=== PATIENT | female | born 2000 | race American Indian/Alaskan Native ===

== ENCOUNTER 2019-06-17 19:35 | Emergency (ER) | payer MEDICAID ==
--- NOTE | 2019-06-17 20:14 | Event Note ---
ED Screening Note Date of service: 06/17/19 Time: 20:10 ED Screening Note: This is a 18 y.o. F. that presents to the ER with vaginal bleeding that started today. She is 15 weeks gestation. LMP 02/26/19, . Followed by [facility] at [facility]. Denies pain This initial assessment/diagnostic orders/clinical plan/treatment(s) is/are subject to change based on patients health status, clinical progression and re- assessment by fellow clinical providers in the ED. Further treatment and workup at subsequent clinical providers discretion. Patient/guardian urged not to elope from the ED as their condition may be serious if not clinically assessed and managed. Initial orders include: Labs and US
[2019-06-17 20:33] LABS: Basophils % (Auto) 0.3 % (0.0-1.8); Eosinophils # (Auto) 0.1 K/mm3 (0.0-0.4); Eosinophils % (Auto) 0.9 % (0.0-4.3); Hematocrit 34.9 % (30.3-42.9); Hemoglobin 12.5 gm/dl (10.1-14.3); Lymphocytes # (Auto) 1.9 K/mm3 (1.2-5.4); Lymphocytes % (Auto) 24.3 % (13.4-35.0); Mean Corpuscular HGB Conc 36 % (30-34); Mean Corpuscular Volume 92 fl (79-97); Monocytes # (Auto) 0.5 K/mm3 (0.0-0.8); Monocytes % (Auto) 6.9 % (0.0-7.3); Platelet Count 228 K/mm3 (140-440); Red Cell Distribution Width 12.5 % (13.2-15.2)
[2019-06-17 21:56] LABS: Bilirubin,Urine NEG (Negative); Blood,Urine MOD (Negative); Calcium Oxalate Crystals,Urine 2+; Color,Urine Yellow (Yellow); Mucus,Urine FEW /HPF; Protein,Urine <15 mg/dL mg/dL (Negative); Urobilinogen,Urine < 2.0 mg/dL (<2.0)
--- NOTE | 2019-06-17 21:58 | Ultrasound Report ---
ULTRASOUND OBSTETRIC INDICATION / CLINICAL INFORMATION: vaginal bleeding, 15 weeks gest. Clinical Gestational Age (GA): 15 weeks TECHNIQUE: Transabdominal. COMPARISON: None available. FINDINGS: There is a single intrauterine . Biparietal Diameter = 3.48 cm = 16 weeks, 5 day(s). Head Circumference = 12.5 cm = 16 weeks, 2 day(s). Abdominal Circumference = 9.74 cm = 15 weeks, 6 day(s). Femur Length = 1.94 cm = 15 weeks, 5 day(s). Average Ultrasound Age (AUA) = 16 weeks, 1 day(s). Heart Rate: 152 beats per minute. Estimated Weight in grams (if calculated): Estimated Weight Growth Percentile (if calculated): Position: transverse. Cervix: closed. Length in cm (if measured): Placenta: anterior and free of the os. Amniotic Fluid Volume: normal Amniotic Fluid Index (SHARMILA) in cm (if calculated): . Maternal Adnexa: No significant abnormality. IMPRESSION: 1. Single, living intrauterine with estimated sonographic age of 16 weeks, 1 day(s). 2. No significant sonographic abnormality. Signer Name: Ariel Palafox MD Signed: 06/17/2019 9:54 PM Workstation Name: [id number]
--- NOTE | 2019-06-17 22:07 | Emergency Department Report ---
ED Female HPI - General Chief complaint: Vaginal Bleeding Stated complaint: VAGINAL BLEEDING/15WKS Time Seen by Provider: 06/17/19 20:10 Source: patient Mode of arrival: Ambulatory Limitations: No Limitations - History of Present Illness Initial comments: The patient is a A0 18-year-old white female who is approximately 15 weeks' gestation who presents to the ED with acute onset persistent intermittent vaginal bleeding which she describes as spotting for the last 6 hours. Patient states that the bleeding is bright red when she wipes whenever she voids urine. Patient denies abdominal pain, dysuria, urinary frequency and urgency, vaginal discharge, low back pain, dizziness, nausea, vomiting, diarrhea, traumatic injury or heavy lifting, fever and chills. MD Complaint: vaginal bleeding -: Sudden, hour(s) (6) Location: suprapubic Radiation: non-radiating Severity: moderate Severity scale (0 -10): 3 Quality: dull Consistency: intermittent Improves with: none Worsens with: urination Are you Now?: Yes (15 weeks gestation) Associated Symptoms: denies other symptoms, vaginal bleeding. denies: vaginal discharge, abdominal pain, nausea/vomiting, fever/chills, headaches, loss of appetite, dysuria, hematuria, rash, seizure, shortness of breath, syncope, weakness, other - Related Data Sexually active: Yes : 1 Para: 0 A: 0 Previous Rx's Medication Instructions Recorded Last Taken Type cephALEXin [Keflex] 500 mg PO Q6HR #40 capsule 06/17/19 Unknown Rx Allergies Allergy/AdvReac Type Severity Reaction Status Date / Time No Known Allergies Allergy Unverified 05/22/16 04:10 ED Review of Systems ROS: Stated complaint: VAGINAL BLEEDING/15WKS Other details as noted in HPI Constitutional: denies: chills, fever Eyes: denies: eye pain, eye discharge, vision change ENT: denies: ear pain, throat pain Respiratory: denies: cough, shortness of breath, wheezing Cardiovascular: denies: chest pain, palpitations Endocrine: no symptoms reported Gastrointestinal: denies: abdominal pain, nausea, diarrhea Genitourinary: hematuria, other (Vaginal bleeding). denies: urgency, dysuria, frequency, discharge Musculoskeletal: denies: back pain, joint swelling, arthralgia Skin: denies: rash, lesions Neurological: denies: headache, weakness, paresthesias Psychiatric: denies: anxiety, depression Hematological/Lymphatic: denies: easy bleeding, easy bruising ED Past Medical Hx - Past Medical History Previous Medical History?: Yes Hx Psychiatric Treatment: Yes (depression, bipolor) - Surgical History Past Surgical History?: No - Social History Smoking Status: Former Smoker Substance Use Type: None - Medications Home Medications: Home Medications Medication Instructions Recorded Confirmed Last Taken Type cephALEXin [Keflex] 500 mg PO Q6HR #40 capsule 06/17/19 Unknown Rx ED Physical Exam - General Limitations: No Limitations General appearance: alert, in no apparent distress - Head Head exam: Present: atraumatic, normocephalic, normal inspection - Eye Eye exam: Present: normal appearance, PERRL, EOMI. Absent: scleral icterus, conjunctival injection, nystagmus, periorbital swelling, periorbital tenderness Pupils: Present: normal accommodation - ENT ENT exam: Present: normal exam, normal orophraynx, mucous membranes moist, TM's normal bilaterally, normal external ear exam - Neck Neck exam: Present: normal inspection, full ROM - Respiratory Respiratory exam: Present: normal lung sounds bilaterally. Absent: respiratory distress, wheezes, rales, chest wall tenderness, accessory muscle use, decreased breath sounds - Cardiovascular Cardiovascular Exam: Present: regular rate, normal rhythm, normal heart sounds. Absent: systolic murmur, diastolic murmur, rubs, gallop - GI/Abdominal GI/Abdominal exam: Present: soft, normal bowel sounds. Absent: tenderness, guarding, rebound, hyperactive bowel sounds, hypoactive bowel sounds - Rectal Rectal exam: Present: deferred - Bi-manual exam: Present: other (deferred, patient choice) - Extremities Exam Extremities exam: Present: normal inspection, full ROM, normal capillary refill - Back Exam Back exam: Present: normal inspection, full ROM. Absent: tenderness, CVA tenderness (R), CVA tenderness (L), muscle spasm, paraspinal tenderness, vertebral tenderness - Neurological Exam Neurological exam: Present: alert, oriented X3, CN II-XII intact, normal gait, reflexes normal - Psychiatric Psychiatric exam: Present: normal affect, normal mood - Skin Skin exam: Present: warm, dry, intact, normal color. Absent: rash ED Course Vital Signs 06/17/19 19:57 Temperature 98.6 F Pulse Rate 77 Respiratory 18 Rate Blood Pressure 113/71 O2 Sat by Pulse 96 Oximetry - Reevaluation(s) Reevaluation #1: 06/17/19 22:06 This is a 18-year-old female who is approximately 15 weeks gestation presented to the ED with vaginal bleeding. In the ED, patient is alert and oriented 3 and is not in distress or pain. The vital signs are stable. Lab test results were reviewed and are all unremarkable except UA that showed acute Urinary tract infection. The transvaginal ultrasound shows a single IUP of approximately 16 weeks 1 day, with a heart rate of 152 bpm, and no other abnormalities. Patient was discharged home and advised to maintain a complete pelvic rest, and to follow-up with the HAIR SPINNING MACHINE OPERATOR physician in the next 2-3 days for reevaluation. Patient also advised to return to the ED immediately if symptoms get worse. 06/17/19 22:10 06/17/19 22:25 ED Medical Decision Making - Lab Data Result diagrams: 06/17/19 20:20 - Radiology Data Radiology results: report reviewed, image reviewed Findings [address] [address] Ultrasound Report Signed Patient: DARRYL VILLEGAS MR#: [id number] : 2000 Acct:[id number] Age/Sex: 18 / F ADM Date: 06/17/19 Loc: ED Attending Dr: Ordering Physician: SUJATA KABA Date of Service: 06/17/19 Procedure(s): US OB >= 14 weeks Fetus Accession Number(s): [id number] cc: SUJATA KABA ULTRASOUND OBSTETRIC INDICATION / CLINICAL INFORMATION: vaginal bleeding, 15 weeks gest. Clinical Gestational Age (GA): 15 weeks TECHNIQUE: Transabdominal. COMPARISON: None available. FINDINGS: There is a single intrauterine . Biparietal Diameter = 3.48 cm = 16 weeks, 5 day(s). Head Circumference = 12.5 cm = 16 weeks, 2 day(s). Abdominal Circumference = 9.74 cm = 15 weeks, 6 day(s). Femur Length = 1.94 cm = 15 weeks, 5 day(s). Average Ultrasound Age (AUA) = 16 weeks, 1 day(s). Heart Rate: 152 beats per minute. Estimated Weight in grams (if calculated): Estimated Weight Growth Percentile (if calculated): Position: transverse. Cervix: closed. Length in cm (if measured): Placenta: anterior and free of the os. Amniotic Fluid Volume: normal Amniotic Fluid Index (SHARMILA) in cm (if calculated): . Maternal Adnexa: No significant abnormality. IMPRESSION: 1. Single, living intrauterine with estimated sonographic age of 16 weeks, 1 day(s). 2. No significant sonographic abnormality. Signer Name: Ariel Palafox MD Signed: 06/17/2019 9:54 PM Workstation Name: [id number] Transcribed By: HARRIET Dictated By: Ariel Palafox MD Electronically Authenticated By: Ariel Palafox MD Signed Date/Time: 06/17/192153 DD/ 48 - Medical Decision Making This is a 18-year-old female who is approximately 15 weeks gestation presented to the ED with vaginal bleeding. In the ED, patient is alert and oriented 3 and is not in distress or pain. The vital signs are stable. Lab test results were reviewed and are all unremarkable except UA that showed acute Urinary tract infection. The transvaginal ultrasound shows a single IUP of approximately 16 weeks 1 day, with a heart rate of 152 bpm, and no other abnormalities. Patient was discharged home and advised to maintain a complete pelvic rest, and to follow-up with the HAIR SPINNING MACHINE OPERATOR physician in the next 2-3 days for reevaluation. Patient also advised to return to the ED immediately if symptoms get worse. 06/17/19 22:10 - Differential Diagnosis Threatened Miscarriage; Vaginal bleeding in Critical care attestation.: If time is entered above; I have spent that time in minutes in the direct care of this critically ill patient, excluding procedure time. ED Disposition Clinical Impression: Threatened miscarriage, Vaginal bleeding before 22 weeks gestation, Acute urinary tract infection Disposition: -01 TO HOME OR SELFCARE Is pt being admited?: No Does the pt Need Aspirin: No Condition: Stable Instructions: Threatened Miscarriage (ED), Urinary Tract Infection in Women (ED) Additional Instructions: MAINTAIN A COMPLETE PELVIC REST, AND FOLLOW UP WITH THE [facility]-ENCYCLOPEDIA RESEARCH WORKER PHYSICIAN IN 2-3 DAYS FOR REEVALUATION. RETURN TO THE ED IMMEDIATELY IF SYMPTOMS GET WORSE. Prescriptions: cephALEXin [Keflex] 500 mg PO Q6HR #40 capsule Referrals: [facility] [Outside] - 3-5 Days Time of Disposition: 22:13 Print Language: PERSIAN
[2019-06-17] MEDS ORDERED: KEFLEX PO ONE (22:23)
[2019-06-17 22:47] VITALS: BP 109/62
== END 2019-06-17 22:46 | disposition home or self-care (01) ==
LOC: ED 19:35
DX: O20.0 Threatened abortion (principal); O23.42 Unspecified infection of urinary tract in pregnancy, second trimester; O99.342 Other mental disorders complicating pregnancy, second trimester; F31.9 Bipolar disorder, unspecified; Z3A.15 15 weeks gestation of pregnancy; Z87.891 Personal history of nicotine dependence; Z79.899 Other long term (current) drug therapy
CPT/HCPCS: 36415; 76805; 81001; 84702; 84703; 85025; 86900; 86901; 87086; 99284

== ENCOUNTER 2019-10-30 01:39 | Outpatient (CLI) | payer MEDICAID ==
[2019-10-30] MEDS ORDERED: LACTATED RINGERS 1,000 ML IV ONE (02:10)
[2019-10-30 02:40] VITALS: BP 108/57
[2019-10-30 02:44] LABS: Bilirubin,Urine NEG (Negative); Blood,Urine NEG (Negative); Color,Urine Yellow (Yellow); Mucus,Urine FEW /HPF; Protein,Urine <15 mg/dL mg/dL (Negative); Urobilinogen,Urine < 2.0 mg/dL (<2.0)
== END 2019-10-30 02:55 | disposition home or self-care (01) ==
LOC: TRG 01:39
PROVIDERS: ATTEND Obstetrics & Gynecology
DX: O47.03 False labor before 37 completed weeks of gestation, third trimester (principal); Z87.891 Personal history of nicotine dependence; Z3A.35 35 weeks gestation of pregnancy
CPT/HCPCS: 59025; 81001

== ENCOUNTER 2020-09-02 18:30 | Outpatient (CLI) | payer MEDICAID ==
[2020-09-02 19:03] VITALS: BP 116/60
[2020-09-02] MEDS ORDERED: LACTATED RINGERS 1,000 ML IV ONE (19:23)
[2020-09-02 20:39] LABS: Bilirubin,Urine NEG (Negative); Blood,Urine NEG (Negative); Color,Urine Yellow (Yellow); Mucus,Urine FEW /HPF; Protein,Urine <15 mg/dL mg/dL (Negative); Urobilinogen,Urine < 2.0 mg/dL (<2.0)
[2020-09-02 20:45] LABS: Amphetamine Screen,Urine Negative; Benzodiazepines Screen,Urine Negative; Cannabinoid Screen,Urine Negative; Cocaine Screen,Urine Negative; Methadone Screen,Urine Negative; Opiate Screen,Urine Negative
== END 2020-09-02 21:29 | disposition home or self-care (01) ==
LOC: TRG 18:30 → APU 18:32 → TRG 21:29
PROVIDERS: ATTEND Obstetrics & Gynecology
DX: O26.893 Other specified pregnancy related conditions, third trimester (principal); R10.30 Lower abdominal pain, unspecified; O47.03 False labor before 37 completed weeks of gestation, third trimester; O99.333 Smoking (tobacco) complicating pregnancy, third trimester; F17.200 Nicotine dependence, unspecified, uncomplicated; Z3A.32 32 weeks gestation of pregnancy
CPT/HCPCS: 59025; 80307; 81001; 96360; J7120